=== PATIENT | female | born 1940 | race Caucasian/White ===

== ENCOUNTER 2023-03-17 11:52 | Inpatient (IN) | payer OTHER, MEDICAID ==
[~2023-03-17] VITALS: Ht 152.4 cm; Wt 77.6 kg
[2023-03-17 11:52] VITALS: BP_SYST 133; PULSE 65; RESP 17; TEMP 98.2; O2SAT 98
[2023-03-17 12:23] LABS: BASOPHILS # (AUTO) 0.1 K/uL (0.0-0.2); BASOPHILS % (AUTO) 1.2 % (0.0-2.0); EOSINOPHILS # (AUTO) 0.1 K/uL (0.0-0.4); EOSINOPHILS % (AUTO) 1.8 % (0.0-4.0); HEMATOCRIT 45.2 % (36-48); HEMOGLOBIN 14.8 g/dL (12.0-16.0); LYMPHOCYTES % (AUTO) 34.1 % (20.5-51.5); MEAN CORPUSCULAR HEMOGLOBIN 30 pg (27-31); MEAN CORPUSCULAR HGB CONC 33 % (32-36); MEAN CORPUSCULAR VOLUME 91 fL (79.0-98.0); MONOCYTES # (AUTO) 0.5 K/uL (0.0-1.0); MONOCYTES % (AUTO) 7.9 % (1.7-9.3); NEUTROPHILS # (AUTO) 3.3 K/uL (1.8-7.7); PLATELET COUNT (AUTO) 314 K/uL (130-430); RED BLOOD CELL COUNT(AUTO) 4.95 MIL/uL (4.2-6.2); RED CELL DISTRIBUTION WIDTH 15.1 % (9.0-15.0)
[2023-03-17 12:31] LABS: ANION GAP 9 (5-15); CALCIUM 9.3 mg/dL (8.4-11.0); CARBON DIOXIDE 24 mmol/L (23-29); CHLORIDE 106 mmol/L (98-107); CREATININE 0.88 mg/dL (0.55-1.30); GLUCOSE 116 mg/dL (74-106); POTASSIUM 3.6 mmol/L (3.5-5.1); SODIUM SERUM 139 mmol/L (136-145); UREA NITROGEN, BLOOD 12 mg/dL (8-21)
[2023-03-17 13:52] LABS: INFLUENZA TYPE A Negative (NEGATIVE); INFLUENZA TYPE B NEGATIVE (NEGATIVE)
[2023-03-17] MEDS ORDERED: ASPI-524 PO (14:09)
[2023-03-17] MEDS ORDERED: LISI-652 PO (14:09)
[2023-03-17] MEDS ORDERED: OMEP-268 PO (14:09)
[2023-03-17] MEDS ORDERED: CARB1TAB33 PO (14:09)
[2023-03-17] MEDS: ENOXAPARIN SODIUM 40 MG/0.4 ML SYRINGE SUBCUT SCH (21:30)
[2023-03-17] MEDS: CARBIDOPA/LEVODOPA 25/100 MG TABLET PO SCH (21:30)
[2023-03-18] MEDS ORDERED: cloNIDine HCL 0.1 MG TABLET PO PRN (07:15)
[2023-03-18] MEDS ORDERED: lisinopriL 5 MG TABLET PO SCH (09:00)
[2023-03-18] MEDS: ASPIRIN 81 MG TAB.CHEW PO SCH (15:50)
[2023-03-18 22:00] VITALS: BP_SYST 122; PULSE 65; RESP 18; TEMP 97.3; O2SAT 96
[2023-03-18] MEDS: LOSARTAN POTASSIUM 50 MG TABLET (COZAAR) PO SCH (22:43)
[2023-03-19] VITALS: BP_SYST 133; PULSE 73; RESP 18; TEMP 97.9; O2SAT 94
[2023-03-19 08:02] VITALS: BP_SYST 130; PULSE 65; RESP 16; TEMP 97.3; O2SAT 97
[2023-03-19 11:30] VITALS: BP_SYST 121; PULSE 56; RESP 18; TEMP 98.3; O2SAT 94
[2023-03-19 17:30] VITALS: BP_SYST 111; PULSE 61; RESP 17; TEMP 98; O2SAT 94
[2023-03-19 20:00] VITALS: BP_SYST 98; PULSE 61; RESP 18; TEMP 98; O2SAT 95
[2023-03-20] VITALS: BP_SYST 110; PULSE 64; RESP 18; TEMP 98.2; O2SAT 96
[2023-03-20 07:48] VITALS: O2SAT 98
[2023-03-20 07:55] VITALS: BP_SYST 122; PULSE 54; PULSE 69; RESP 16; TEMP 97.5; O2SAT 98
[2023-03-20 14:15] VITALS: BP_SYST 119; PULSE 54; RESP 16; TEMP 97.4; O2SAT 96
== END 2023-03-20 16:00 | DRG 57 ==
LOC: SED 11:52 → STU 16:07
PROVIDERS: ADMIT Family Medicine; ATTEND Family Medicine
DX: G20.A1 Parkinson's disease without dyskinesia, without mention of fluctuations (principal); R29.6 Repeated falls; M17.0 Bilateral primary osteoarthritis of knee; I10 Essential (primary) hypertension; Z96.652 Presence of left artificial knee joint; Z20.822 Contact with and (suspected) exposure to COVID-19
CPT/HCPCS: 36415; 71045; 80048; 85025; 97110-GP; 97530-GP; 99285; G0378; J1650